=== PATIENT | male | born 1990 | race American Indian/Alaskan Native ===

== ENCOUNTER 2017-09-01 15:00 | Emergency (ER) | payer OTHER ==
[2017-09-01 15:22] VITALS: BP 119/82
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
== END 2017-09-01 16:31 | disposition home or self-care (01) ==
LOC: ED 15:00
DX: M79.1 Myalgia (principal)
CPT/HCPCS: 99282